=== PATIENT | female | born 1960 | race Caucasian/White ===

== ENCOUNTER → 2021-03-16 | Outpatient (CLI) | payer OTHER ==
[~2021-03-16] MED LIST: ACETAMINOPHEN325 M1 PO; ASPIRIN EC81 M1 PO; CO Q-1010 MG PO; DIAZEPAM 5 MG5 M1 PO; FISH OIL 1,001000 M1 PO; HYDROCODON-ACE1 EAC7 PO; KEFLEX500 MG PO; LEVOTHYROXINE0.05 MG PO; MOTRIN PO; MULTIVITAMINS PO; NIACIN 100MG T100 M1 PO; NORCO 5-325 TA1 EAC1 PO; VITAMIN A10000 UNI3 PO; VITAMIN B-12100 MC1 PO; VITAMIN E400 UNIT PO; ZOLOFT 50 MG TA50 M1 PO; ZPAK PO
== END ==
LOC: M.RAD 11:01
PROVIDERS: ATTEND Family Medicine
DX: Z12.31 Encounter for screening mammogram for malignant neoplasm of breast (principal)